=== PATIENT | female | born 1935 | race Caucasian/White ===

== ENCOUNTER 2017-09-08 23:18 | Emergency (ER) | payer OTHER ==
--- NOTE | 2017-09-09 00:02 | ER Document Report ---
ED Fall - General Chief Complaint: Fall Stated Complaint: FALL Time Seen by Provider: 09/08/17 23:48 Notes: Patient is an 81-year-old female who comes emergency department for chief complaint of fall, she states she lost her balance and then fell hitting a door , doorknob, and hitting her head on the door as well. She has a swollen area over the back of her head. She reports pain in her upper back, left shoulder, neck, and also tail bone. She denies incontinence, numbness, loss of consciousness, vomiting. She is not on a blood thinner, only medication is Synthroid. She comes with her family. Family states that she has chronic vertigo and imbalance and falls frequently as a result. TRAVEL OUTSIDE OF THE [place] IN LAST 30 DAYS: No - Related data Allergies/Adverse Reactions: acetaminophen [From Tylenol] Allergy (Verified 09/08/17 23:32) tramadol Allergy (Verified 09/08/17 23:32) amoxicillin Adverse Reaction (Verified 09/08/17 23:32) levofloxacin [From Levaquin] Adverse Reaction (Verified 09/08/17 23:32) nitrofurantoin [From Macrobid] Adverse Reaction (Verified 09/08/17 23:32) Penicillins Adverse Reaction (Verified 09/08/17 23:32) Past Medical History - General Information source: Patient - Social History Smoking Status: Never Smoker Chew tobacco use (# tins/day): No Frequency of alcohol use: None Drug Abuse: None Lives with: Family Family History: Reviewed & Not Pertinent Patient has suicidal ideation: No Patient has homicidal ideation: No Endocrine Medical History: Reports: Hx Hypothyroidism Renal/ Medical History: Denies: Hx Peritoneal Dialysis Musculoskeltal Medical History: Reports Other - Osteopenia - Immunizations Hx Diphtheria, Pertussis, Tetanus Vaccination: Yes Review of Systems - Review of Systems Constitutional: No symptoms reported EENT: No symptoms reported Cardiovascular: No symptoms reported Respiratory: No symptoms reported Gastrointestinal: No symptoms reported Genitourinary: No symptoms reported Female Genitourinary: No symptoms reported Musculoskeletal: See HPI Skin: No symptoms reported Hematologic/Lymphatic: No symptoms reported Neurological/Psychological: No symptoms reported Physical Exam - Vital signs Vitals: Pulse Resp BP Pulse Ox 78 18 171/78 H 98 09/08/17 23:22 09/08/17 23:09/08/17 23:22 09/08/17 23:22 - Notes Notes: GENERAL: Alert, interacts well. No acute distress. HEAD: Normocephalic. Posterior parietal-occipital midline hematoma with no open wounds. No other signs of trauma. EYES: Pupils equal, round, and reactive to light. Extraocular movements intact. ENT: Oral mucosa moist, tongue midline. [Nares patent, no nasal septal hematoma , TM's intact.] NECK: Full range of motion. Supple. Trachea midline. LUNGS: Clear to auscultation bilaterally, no wheezes, rales, or rhonchi. No respiratory distress. HEART: Regular rate and rhythm. No murmur ABDOMEN: Soft, non-tender. Non-distended. Bowel sounds present in all 4 quadrants. EXTREMITIES: Moves all 4 extremities spontaneously. No edema, normal radial and dorsalis pedis pulses bilaterally. No cyanosis. BACK: Tender over the right posterior scapular area, no ecchymosis or swelling, full range of motion of the shoulder, normal upper extremity exam otherwise. Normal lower extremity exam bilaterally. Tender over the tailbone specifically , no swelling, no ecchymosis, nontender over the thoracic or lumbar spine. There is some generalized tenderness over the cervical spine. NEUROLOGICAL: Alert and oriented x3. Normal speech. [cranial nerves II through XII grossly intact]. PSYCH: Normal affect, normal mood. SKIN: Warm, dry, normal turgor. No rashes or lesions noted. Course - Re-evaluation Re-evalutation: Patient with no swelling or ecchymosis, she is alert and oriented, normal neurological exam. She does have a scalp hematoma on exam. Imaging shows scalp hematoma but no other acute findings. Discussed results with patient and family, head injury precautions, monitoring, follow-up, and return precautions in detail. They are requesting some medication for pain for her, this was provided. Patient did very well with the medication while she was here and she is moving much better afterwards. Patient stable at time of discharge. - Vital Signs Vital signs: Temp Pulse Resp BP Pulse Ox 98.9 F 83 15 146/67 H 95 09/09/17 01:26 09/09/17 01:26 09/09/17 01:26 09/09/17 01:26 09/09/17 01:26 Discharge - Discharge Clinical Impression: Sacral pain Fall Qualifiers: Encounter type: initial encounter Qualified Code(s): W19.XXXA - Unspecified fall, initial encounter Scalp hematoma Qualifiers: Encounter type: initial encounter Qualified Code(s): S00.03XA - Contusion of scalp, initial encounter Left shoulder pain Qualifiers: Chronicity: acute Qualified Code(s): M25.512 - Pain in left shoulder Condition: Stable Disposition: HOME, SELF-CARE Additional Instructions: Images of the brain and skull are normal, there is a hematoma on the scalp which will resolve with time. There are degenerative changes in the spine, but no other concerning findings are noted. You will be progressively sore over the next 2 days. Take the pain medication if needed (can cut in half, or even in 1/3), take the stool softener colace as well if you do take it to avoid constipation. Follow up with primary care. Return for any concerning symptoms (see additional details below). Head Injury Precautions At this point, there is no evidence that your head injury is serious. Observation is necessary, however. Limit activity for the first 24 hours. Bed rest is best. During the first 24 hours, check to see approximately every two to three hours that the patient is easily arousable, responds normally, and can perform common tasks such as walking without difficulty. Contact your doctor or go to the hospital if any of the following things occur: Persistent vomiting, difficulty in arousing the patient, worsening or continued headache, or failure to improve as expected. Head injuries can cause symptoms that persist for a few days or even a few weeks. Prescriptions: Morphine Sulfate [Morphine Ir 15 Mg Tablet] 0.5 - 1 tab PO Q4HP PRN #8 tablet PRN Reason: Docusate Sodium [Colace 100 mg Capsule] 100 mg PO ASDIR PRN #30 capsule PRN Reason:
--- NOTE | 2017-09-09 00:24 | RADIOLOGY REPORT (SQ) ---
EXAM DESCRIPTION: CT HEAD WITHOUT IV CONTRAST COMPLETED DATE/TME: 09/08/2017 23:59 CLINICAL HISTORY: 81 years Female, fall, hematoma COMPARISON: None. TECHNIQUE: No contrast. Coronal and sagittal reformat. This exam was performed according to our departmental dose-optimization program, which includes automated exposure control, adjustment of the mA and/or kV according to patient size and/or use of iterative reconstruction technique. FINDINGS: No hemorrhage or infarct. No mass, mass effect, or midline shift. Small right occipital scalp hematoma. Brain and extra-axial structures appear otherwise intact. IMPRESSION: Small scalp hematoma.
--- NOTE | 2017-09-09 00:27 | RADIOLOGY REPORT (SQ) ---
EXAM DESCRIPTION: CT CERVICAL SPINE WITHOUT IV CONTRAST COMPLETED DATE/TME: 09/08/2017 23:59 CLINICAL HISTORY: 81 years Female, fall, pain Comparison: None. Technique: No contrast. Coronal and sagital reformat. This exam was performed according to our departmental dose-optimization program, which includes automated exposure control, adjustment of the mA and/or kV according to patient size and/or use of iterative reconstruction technique. [facility]: Dose Right [facility]: CareDose [facility]: Dose Right [facility]: Teradose 4D [facility]: Flytivity LIMITATIONS: None. Findings: Fracture: None. Vertebral alignment: Normal, including the craniocervical junction and cervicothoracic junction. Soft tissues: Normal. Other: Mild spondylosis. Mild disc desiccation worse at C6-C7, C4-C5 levels. Impression: No acute findings.
--- NOTE | 2017-09-09 00:52 | RADIOLOGY REPORT (SQ) ---
EXAM DESCRIPTION: XR SHOULDER 2 OR MORE VIEWS COMPLETED DATE/TME: 09/08/2017 23:59 CLINICAL HISTORY: 81 years Female, fall, pain COMPARISON: None. Findings: Bones, joints, and soft tissues of the XR RIGHT SHOULDER 3 VIEWS appear intact. IMPRESSION: No acute findings.
--- NOTE | 2017-09-09 00:53 | RADIOLOGY REPORT (SQ) ---
EXAM DESCRIPTION: XR SACRUM COCCYX 2 OR MORE VIEWS COMPLETED DATE/TME: 09/08/2017 23:59 CLINICAL HISTORY: 81 years Female, fall, pain COMPARISON: None. Findings: Moderate lower lumbar spondylosis. Normal alignment and curvature of the sacrum-coccyx. Diffuse demineralization. Bones, joints, and soft tissues of the XR SACRUM COCCYX 3 VIEWS appear otherwise intact. IMPRESSION: No acute findings.
[2017-09-09] MEDS ORDERED: MORPHINE SULFATE IR 15 MG TABLET PO ONE ×2 (01:30)
[2017-09-09 01:45] VITALS: BP 146/67
== END 2017-09-09 01:46 | disposition home or self-care (01) ==
LOC: ER 23:18
DX: S00.03XA Contusion of scalp, initial encounter (principal); M53.3 Sacrococcygeal disorders, not elsewhere classified; M25.512 Pain in left shoulder; M54.6 Pain in thoracic spine; M54.2 Cervicalgia; W22.8XXA Striking against or struck by other objects, initial encounter; Z79.899 Other long term (current) drug therapy
CPT/HCPCS: 99284; 72220; 73030; 70450; 72125; A9270